=== PATIENT | male | born 1960 | race Caucasian/White ===

== ENCOUNTER 2024-07-31 16:09 | Emergency (ER) | payer BC ==
[2024-07-31 17:27] LABS: #Basophils Less than 0.03 10x3/uL (0.0-0.2); #Monocytes 1.15 10x3/uL (0.0-1.1); #Neutrophils 8.05 10x3/uL (1.5-8.4); %Basophils 0.2 % (0.0-2.0); %Eosinophils 0.9 % (0.0-6.0); %Lymphocytes 13.7 % (18.0-47.0); %Monocytes 10.5 % (0.0-10.0); %Neutrophils 73.9 % (40.0-75.0); Hematocrit 42.3 % (38.8-50.0); Hemoglobin 14.5 g/dL (13.5-17.5); Mean Corpuscular HGB CONC 34.3 g/dL (32.0-36.0); Mean Corpuscular Volume 87.4 fL (81.2-95.1); Platelet Count 259 10x3/uL (150-450); RBC Distribution Width 11.9 % (11.5-14.5); Red Blood Cell (RBC) Count 4.84 10x6/uL (4.32-5.72); White Blood Cell (WBC) Count 10.91 10x3/uL (3.5-10.5)
[2024-07-31 17:42] LABS: ALT (SGPT) 40 U/L (Less than 45); AST (SGOT) 37 U/L (11-34); Albumin 3.5 g/dL (3.1-4.5); Alkaline Phosphatase 66 U/L (40-110); Anion Gap 13 mmol/L (10-20); BUN (Urea Nitrogen) 12 mg/dL (8.4-25.7); Bilirubin, Total 0.5 mg/dL (0.3-1.2); Calc. Creatinine Clearance 0 mL/min (70-130); Calcium 9.7 mg/dL (7.8-10.44); Carbon Dioxide 23 mmol/L (23-31); Chloride 111 mmol/L (98-107); Estimated GFR 80; Glucose 115 mg/dL (80-115); Potassium 3.8 mmol/L (3.5-5.1); Protein, Total 6.5 g/dL (5.8-8.1); Sodium 143 mmol/L (136-145)
== END 2024-07-31 18:42 | disposition home or self-care (01) ==
LOC: CSHERS 16:09
DX: J18.9 Pneumonia, unspecified organism (principal)
CPT/HCPCS: 71046; 80053; 83880; 84145; 85025; 87428; 93005